=== PATIENT | male | born 2000 | race Caucasian/White ===

== ENCOUNTER 2021-05-18 14:30 | Emergency (ER) | payer SELFPAY ==
[2021-05-18] MEDS ORDERED: Ondansetron PF 4 MG/2 ML Vial ONE (16:13)
[2021-05-18] MEDS ORDERED: Morphine 4 MG/ML VIAL ONE (16:13)
[2021-05-18] MEDS ORDERED: Piperacillin/Tazobactam 3.375 GM VIAL ONE ×2 (16:13→18:19)
[2021-05-18] MEDS ORDERED: Bupivacaine 0.25% HCL 30 ML VIAL ONE (17:40)
[2021-05-18] MEDS ORDERED: Lidocaine 1% w/Epinephrine 1:100K 30 ML VIAL ONE (17:40)
[2021-05-18 17:49] LABS: SARS-CoV-2 NAA Rapid Test Not Detected (NotDetected)
[2021-05-18] MEDS ORDERED: Fentanyl 100 MCG/2 ML VIAL ONE (18:05)
[2021-05-18] MEDS ORDERED: Midazolam HCl 2 mg/2 ml Vial ONE (18:05)
[2021-05-18] MEDS ORDERED: Sodium Chloride 0.9% 0 ML ONE (18:19)
[2021-05-18] MEDS ORDERED: Meperidine HCl/PF 25 MG/ML VIAL ONE (18:34)
[2021-05-18] MEDS ORDERED: PROPOFOL 200 MG/20 ML VIAL ONE (18:43)
[2021-05-18] MEDS ORDERED: Lidocaine 1% PF 5 ML VIAL ONE (18:43)
[2021-05-18] MEDS ORDERED: Ketorolac Tromethamine 30 MG/ML VIAL ONE (18:43)
[2021-05-18] MEDS ORDERED: Succinylcholine 200 MG/10 ml SYRINGE FS ONE (18:43)
[2021-05-18] MEDS ORDERED: HYDROcodone/Acetaminophen 5/325 mg Tablet ONE ×2 (20:13)
== END 2021-05-18 18:19 | disposition short-term general hospital (02) ==
LOC: ERS 14:30
PROC: 0DTJ4ZZ Resection of Appendix, Percutaneous Endoscopic Approach (ICD-10-PCS; principal; 2021-05-18)
DX: K35.80 Unspecified acute appendicitis (principal); Z20.822 Contact with and (suspected) exposure to COVID-19
CPT/HCPCS: 88304; 96365; 96375; J1885; J2175; J2250; J2270; J2405; J2543; J2704; J3010; J3490; S0020; U0002